=== PATIENT | male | born 1970 | race Caucasian/White ===

== ENCOUNTER 2024-02-04 11:16 | Emergency (ER) | payer SELFPAY ==
[2024-02-04 11:56] LABS: #Basophils 0.05 10x3/uL (0.0-0.2); %Basophils 0.7 % (0.0-1.0); %Eosinophils 2.9 % (0.0-10.0); %Lymphocytes 28.6 % (21.0-51.0); %Monocytes 8.7 % (0.0-10.0); %Neutrophils 58.8 % (42.0-75.0); Hematocrit 45.5 % (42.0-52.0); Mean Corpuscular HGB CONC 35.2 g/dL (32.0-36.0); Mean Corpuscular Hemoglobin 29.9 pg (27.0-31.0); Mean Platelet Volume 9.9 fL (7.4-10.4); Platelet Count 255 10x3/uL (130-400); RBC Distribution Width 12.1 % (11.5-14.5); Red Blood Cell (RBC) Count 5.35 mill/uL (4.70-6.10)
[2024-02-04 12:12] LABS: ALT (SGPT) 28 U/L (8-55); AST (SGOT) 16 U/L (5-34); Albumin 4.2 g/dL (3.5-5.0); Alkaline Phosphatase 60 U/L (40-110); Anion Gap 15 mmol/L (10-20); BUN (Urea Nitrogen) 14 mg/dL (8.4-25.7); Bilirubin, Total 0.8 mg/dL (0.2-1.2); Calc. Creatinine Clearance 0 mL/min (70-130); Calcium 10.1 mg/dL (7.8-10.44); Carbon Dioxide 22 mmol/L (22-29); Chloride 100 mmol/L (98-107); Estimated GFR 87; Globulin 3.4 g/dL (2.4-3.5); Glucose 375 mg/dL (70-105); Potassium 4.5 mmol/L (3.5-5.1); Protein, Total 7.6 g/dL (6.0-8.3); Sodium 132 mmol/L (136-145)
[2024-02-04 12:18] LABS: Troponin I Less than 0.010 ng/mL (< 0.028)
[2024-02-04] MEDS ORDERED: Iopamidol-370 76% 500 ML MDV (1 ML CHARGE) ONE (12:24)
== END 2024-02-04 13:46 | disposition home or self-care (01) ==
LOC: ERS 11:16
DX: R06.00 Dyspnea, unspecified (principal); E11.65 Type 2 diabetes mellitus with hyperglycemia; E11.40 Type 2 diabetes mellitus with diabetic neuropathy, unspecified; Z79.84 Long term (current) use of oral hypoglycemic drugs
CPT/HCPCS: 36415; 71045; 71275; 80053; 83880; 84484; 85025; 85379; 93005; Q9967